=== PATIENT | female | born 1995 | race Caucasian/White ===

== ENCOUNTER 2019-07-01 14:32 | Outpatient (CLI) | payer OTHER ==
--- NOTE | 2019-07-01 16:37 | ULT ---
RIGHT BREAST ULTRASOUND LIMITED; 07/01/2019 PROVIDED CLINICAL HISTORY: Right breast palpable abnormality. FINDINGS: Limited sonographic interrogation was performed at the 10 o'clock position of the right breast, in t he region of palpable concern. No sonographically apparent focal mass is evident. IMPRESSION: No sonographic abnormality is evident in the region of palpable concern. Negative imaging findings s hould not preclude further evaluation of a clinically suspicious area. The patient is referred back to her clinician. POS: OFF
== END 2019-07-01 14:33 | disposition home or self-care (01) ==
LOC: BICULT 14:32
PROVIDERS: ATTEND Student in an Organized Health Care Education/Training Program
DX: N63.10 Unspecified lump in the right breast, unspecified quadrant (principal)